=== PATIENT | male | born 1935 | race Caucasian/White ===

== ENCOUNTER 2018-07-05 12:47 | Inpatient (IN) | payer OTHER ==
[~2018-07-05] VITALS: Ht 172.7 cm; Wt 84.2 kg
--- NOTE | ~2018-07-05 | CATHLAB ---
[facility] [address] [place] [address] INVASIVE PROCEDURE REPORT Name: TI PFEIFFER Room #: 206-P ADM IN M..#: [id number] Admission: 07/05/18 Attend Phys: Terrance Cui MD Discharge: Date of : 34 Date of Service: 07/08/18 165 Report #: [id number] THIS REPORT FOR: //name// APPROVED REPORT Study performed: 07/08/2018 09:59:55 Patient Details Patient Status: In-Patient Room #: 206 The patient is a 82 year-old male Event Personnel Reynold Manzo Anesthesiology Faculty, Grisel Montoya Partnoy, Nancy RTR, STERILE PROCESS COORDINATOR Monitor, Bayron William RN Procedures Performed Coronaries Angiography and Bypass Grafts 743493 CORCABG 27456 Initial Mod Sed Same Phys/QHP Gr5y 063328 Art Access - R femoral artery* Hemostasis with Manual pressure 60594 Mod Sed Same Phys/QHP Ea 136148 Indication Dyspnea, Unstable angina , Positive stress test Risk Factors Peripheral Vascular Disease, Hypercholesterolemia, Coronary Artery DiseaseHypertensionRenal Failure, History of noncompliance with medical therapy. Previous Procedures/Diagnoses Previous CABG Procedure Narrative The Right Groin^ was infiltrated with 1% Lidocaine subcutaneous anesthesia. A PINNACLE 5FR Sheath #[id number] sheath was inserted into the RFA^. Coronary angiography was performed using coronary diagnostic catheters. The right coronary system was accessed and visualized with a JR4 catheter. The left coronary system was accessed and visualized with a JL5 catheter. Hemostasis was obtained with manual pressure following sheath removal without any complications. The patient tolerated the procedure well and there were no complications associated with the procedure. There was no hematoma. Intraoperative Conscious Sedation [facility] [address] [place] [address] INVASIVE PROCEDURE REPORT Name: TI PFEIFFER Room #: 206-P [facility] IN ..#: [id number] Admission: 07/05/18 Attend Phys: Terrance Cui MD Discharge: Date of : 34 Date of Service: 07/08/18 1651 Report #: [id number] Sedation start time: 11:10 Case end Time: 12:06 Fentanyl 100 mcg Versed 3 mg Fluoro Time: 9.50 minutes Dose: DAP 5904.40 cGycm2 664 mGy Contrast Type and Amount: Visipaque 60 ml Coronary Angiography The patient's coronary anatomy is right dominant. Diagnostic Cath LAD Occluded at the ostium. There is a patent TERRELL graft with an end-to-side anastomosis to the mid LAD. After the anastomosis, there is moderate diffuse disease in the LAD, recommend medical therapy. The distal LAD supplies collateral blood flow to the right PDA. Diagonal 1 Filled via retrograde blood flow from the TERRELL graft to the LAD. Circumflex The branches are occluded at the ostium. OM1 There is a large sequential SVG with a peqq-or-ufog anastomosis to OM1, atnw-go-upij anastomosis to OM 2 and end to side anastomosis to the right posterior lateral branch #2. After the anastomosis, there is retrograde filling to RPL #1, distal RCA and part of the PDA. Within the mid segment of the vein graft, there is a severe, ulcerative stenosis, at least 95% stenotic. Right Coronary Occluded at the proximal segment. There is an SVG to the distal RCA that is occluded at the proximal segment of the vein graft. Left Ventriculography Left Ventriculography was not performed. Ejection Fraction was 55-60% based off patient's Nuclear Cardiac Stress Test. Hemodynamics The aortic pressure is 147/76 mmHg with a mean of 107 mmHg. Conclusion 1. Patent TERRELL graft to mid LAD, there is moderate diffuse disease in the [place] LAD. Recommend medical therapy. 2. Severe, ulcerated stenosis within the mid segment of the sequential SVG to OM1, OM 2 and RPL 2. There is retrograde filling of the distal RCA and part of the PDA. [facility] [address] [place] [address] INVASIVE PROCEDURE REPORT Name: TI PFEIFFER Room #: 206-P [facility] IN M.R.#: [id number] Admission: 07/05/18 Attend Phys: Terrance Cui MD Discharge: Date of : 34 Date of Service: 07/08/18 1651 Report #: [id number] 3. The patient developed severe back pain lying on the cardiac cath table, unable to proceed with an angioplasty procedure. The right femoral artery sheath was removed as per patient's request. 4. Recommend staged angioplasty of the sequential SVG via radial access approach. 5. Gentle hydration and renal follow-up. <ELECTRONICALLY SIGNED> By: Reynold Manzo MD 07/08/181650 50 50 Reynold Manzo MD /INF
--- NOTE | ~2018-07-05 | HC ---
[facility] [place] [place] [address] CONSULTATION Name: TI PFEIFFER Room #: 206-P [facility] IN M.R.#: [id number] Admission: 07/05/18 Attend Phys: Terrance Cui MD Discharge: Date of : 34 Report #: [id number] THIS REPORT FOR: //name// CC: FAM physician/PCP Terrance Cui DATE OF SERVICE: 07/06/2018 Nephrology Consultation ATTENDING PHYSICIAN: Terrance Cui MD REASON FOR CONSULTATION: Chronic kidney disease. HISTORY OF PRESENT ILLNESS: The patient was seen in our office by Dr. No, longstanding difficult poorly controlled hypertension, history of coronary artery disease, previous coronary bypass, chronic kidney disease with a baseline creatinine of 3.7 in our office, presents with worsening chest pain and a creatinine of 4.0 today and difficult hypertension. PAST MEDICAL HISTORY: He has had the previous coronary bypass some years ago here at this hospital, maybe 8-10 years ago and hypertension, some arthritis. HOME MEDICATIONS: Include lisinopril 20 mg daily, metoprolol 50 mg daily. FAMILY HISTORY: Negative for renal disease. SOCIAL HISTORY: Heavy smoker, smokes up to a pack a day for a long number of years. REVIEW OF SYSTEMS: GENERAL: He has been feeling okay except for the exertional chest pain. EYES: His vision is alright. ENT: He cannot hear more much of anything on either side and was again to understand. Mucous membranes are moist. Teeth are somewhat discolored. NECK: Supple. CHEST: Clear to auscultation. HEART: Regular. ABDOMEN: Soft and nontender. EXTREMITIES: Show no edema. He has got an articulated erythematous pattern around his knees and his peripheral pulses are diminished, maybe very trace peripheral edema. NEUROLOGIC: Grossly intact except for his hearing. LABORATORY DATA: Urinalysis not done. Sodium 143, potassium 4.1, chloride 113, bicarbonate 20, creatinine 4, phosphorus 4, calcium 8.6. [address] [address] CONSULTATION Name: TI PFEIFFER Room #: [address] [place] [address] IN ..#: [id number] Admission: 07/05/18 Attend Phys: Terrance Cui MD Discharge: Date of : 34 Report #: [id number] IMPRESSION: 1. Chronic kidney disease. He has known chronic kidney disease, fairly advanced with a low estimated glomerular filtration rate, stage 4-5 disease, may need a heart catheterization, certainly at risk there for further deterioration, possibly even dialysis. 2. Chest pain. He has atypical chest pain, could certainly be angina. He has had previous coronary bypass. He is not the best historian, but that does seem to be exertional, likely will need a heart catheterization. 3. Severe hypertension. I will increase up his meds a bit. Unfortunately, his pulse is on the slow side and we really cannot increase of his carvedilol any further. His hydralazine needs to go up higher. He is already on 60 mg a day of Imdur. He is off his lisinopril, which he had been on. We will need to add further medications here to try to get this blood pressure down better. 4. Status post coronary artery bypass. <ELECTRONICALLY SIGNED> By: Nehemias Carey MD 07/08/18 1109 1845 0451 Nehemias Carey MD /nt
--- NOTE | ~2018-07-05 | EKG ---
[address] [place] [address] ELECTROCARDIOGRAM REPORT Name: TI PFEIFFER Room #: 206-P ADM IN M.R.#: [id number] Admission: 07/05/18 Attend Phys: Terrance Cui MD Discharge: Date of : 34 Report #: [id number] THIS REPORT FOR: //name// [facility] Test Date: 2018-07-06 Test Time: 00:11:19 Pat Name: TI PFEIFFER Department: Room: 206 P Gender: M Logistics/Shipper: brian : 1935 Requested By: Reynold Manzo Order Number: [id number] MD: Joe Ferrera Measurements Intervals [place] Rate: 48 P: -17 [place]: 201 QRS: -28 QRSD: 97 T: 165 QT: 454 QTc: 406 Interpretive Statements Sinus bradycardia LVH with secondary repolarization abnormality Anterior infarct, old Compared to ECG 07/05/2018 13:07:39 No significant change was found Electronically Signed On 07-07-2018 8:44:32 CDT by Joe Ferrera [email or web address] <ELECTRONICALLY SIGNED> By: Joe Ferrera MD, [facility] 07/07/18 0844 Joe Ferrera MD, FAC /EPI
--- NOTE | ~2018-07-05 | EKG ---
[place] [address] [employer] [place] [address] ELECTROCARDIOGRAM REPORT Name: TI PFEIFFER Room #: 206-P ADM IN M.R.#: [id number] Admission: 07/05/18 Attend Phys: Terrance Cui MD Discharge: Date of : 34 Report #: [id number] THIS REPORT FOR: //name// [facility] Test Date: 2018-07-08 Test Time: 17:57:00 Pat Name: TI PFEIFFER Department: Room: 206 P Gender: M Lobby Concierge: Iftikhar CABRALES : 1935 Requested By: Reynold Manzo Order Number: [id number] MD: Joe Ferrera Measurements Intervals [place] Rate: 80 P: 25 MD: 206 QRS: -36 QRSD: 90 T: 124 QT: 393 QTc: 454 Interpretive Statements Sinus rhythm LVH with secondary repolarization abnormality Probable inferior infarct, recent Probable anterior infarct, age indeterminate Compared to ECG 07/06/2018 00:11:19 inferior injury pattern is less pronounced Lateral ST and T wave abnormality has improved Electronically Signed On 07-09-2018 8:56:02 CDT by Joe Ferrera [email or web address] <ELECTRONICALLY SIGNED> By: Joe Ferrera MD, [facility] 07/09/18 0856 1757 1757 Joe Ferrera MD, [facility] /EPI
--- NOTE | ~2018-07-05 | EKG ---
[address] [address] ELECTROCARDIOGRAM REPORT Name: TI PFEIFFER Room #: 206-P ADM IN M.R.#: [id number] Admission: 07/05/18 Attend Phys: Terrance Cui MD Discharge: Date of : 34 Report #: [id number] THIS REPORT FOR: //name// [facility] Test Date: 2018-07-06 Test Time: 00:11:19 Pat Name: TI PFEIFFER Department: Room: 206 P Gender: M Cook Helper Pastry: brian : 1935 Requested By: Reynold Manzo Order Number: [id number] MD: Measurements Intervals [place] Rate: 48 P: -17 [place]: 201 QRS: -28 QRSD: 97 T: 165 QT: 454 QTc: 406 Interpretive Statements Sinus bradycardia LVH with secondary repolarization abnormality Inferior infarct, old Anterior infarct, old Compared to ECG 07/05/2018 13:07:39 Myocardial infarct finding now present Sinus rhythm no longer present Poor R-wave progression no longer present [email or web address] By: 0011 001 Epiphany EpiphanyMD /EPI
--- NOTE | ~2018-07-05 | 2DMMODE ---
[facility] [address] [facility] [place] [address] 2 D/M-MODE ECHOCARDIOGRAM Name: TI PFEIFFER Room #: 206-P ADM IN .R.#: [id number] Admission: 07/05/18 Attend Phys: Terrance Cui MD Discharge: Date of : 34 Date of Service: 07/06/18 1533 Report #: [id number] THIS REPORT FOR: //name// APPROVED REPORT Study performed: 07/06/2018 11:20:32 EXAM: Comprehensive 2D, Doppler, and color-flow Echocardiogram Patient Location: Echo lab Room #: 206 Status: routine BSA: 2.04 HR: 45 bpm BP: 153/71 mmHg Rhythm: Bradycardia Other Information Study Quality: Good Indications Angina. Hx: AK, CABG, HTN, HLP, tobacco abuse. 2D Dimensions RVDd: 39.37 mm IVSd: 13.11 (7-11mm) LVOT Diam: 20.51 (18-24mm) LVDd: 53.06 mm PWd: 12.62 (7-11mm) Ascending Ao: 34.79 (22-36mm) LVDs: 39.95 (25-40mm) Aortic Root: 35.52 mm Volumes Left Atrial Volume (Systole) Single Plane 4CH: 52.68 mL Single Plane 2CH: 54.74 mL LA ESV Index: 28.00 mL/m2 Aortic Valve AoV Peak Al.: 1.30 m/s AO Peak Gr.: 6.80 mmHg LVOT Max P.08 mmHg LVOT Max V: 0.88 m/s OLU Vmax: 2.22 cm2 Mitral Valve E/A Ratio: 0.9 MV Decel. Time: 203.71 ms MV E Max Al.: 0.85 m/s [facility] [place] [address] [place] [address] 2 D/M-MODE ECHOCARDIOGRAM Name: TI PFEIFFER Room #: 206-[facility] IN .R.#: [id number] Admission: 07/05/18 Attend Phys: Terrance Cui MD Discharge: Date of : 34 Date of Service: 07/06/18 1533 Report #: [id number] MV A Al.: 0.97 m/s MV PHT: 59.08 ms IVRT: 64.59 ms Pulmonary Valve PV Peak Al.: 0.89 m/s PV Peak Gr.: 3.15 mmHg Pulmonary Vein P Vein S: 0.73 m/s P Vein A: 0.35 m/s P Vein D: 0.61 m/s P Vein A Dur.: 175.3 msec P Vein S/D Ratio: 1.20 Tricuspid Valve TR Peak Al.: 2.35 m/s RAP Estimate: 5.00 mmHg TR Peak Gr.: 22.13 mmHg PA Pressure: 27.00 mmHg Left Ventricle The left ventricle is normal size. Mild concentric left ventricular hypertrophy. Left ventricular systolic function is normal. LVEF is 55-60%. Mild diastolic dysfunction is present (impaired relaxation pattern). Right Ventricle The right ventricle is normal size. The right ventricular systolic function is normal. Atria The left atrium size is normal. The right atrium size is normal. Aortic Valve Aortic valve leaflets are mildly thickened. No aortic regurgitation is present. There is no aortic valvular stenosis. Mitral Valve Mitral valve leaflets are mildly thickened. Mild mitral regurgitation. Tricuspid Valve The tricuspid valve is normal in structure. Trace tricuspid regurgitation. Estimated PAP is 25-30mmHg. Pulmonic Valve Pulmonic valve is not well visualized. Trace pulmonic regurgitation. [facility] [address] [place] [address] 2 D/M-MODE ECHOCARDIOGRAM Name: TI PFEIFFER Room #: 206-P [facility] IN .R.#: [id number] Admission: 07/05/18 Attend Phys: Terrance Cui MD Discharge: Date of : 34 Date of Service: 07/06/18 1533 Report #: [id number] Great Vessels The aortic root is normal in size. The ascending aorta is normal in size. IVC is normal in size and collapses >50% with inspiration. Pericardium There is no pericardial effusion. <Conclusion> The left ventricle is normal size. Mild concentric left ventricular hypertrophy. Left ventricular systolic function is normal. Mild diastolic dysfunction is present (impaired relaxation pattern). The right ventricle is normal size. The left atrium size is normal. Aortic valve leaflets are mildly thickened. Mild mitral regurgitation. Trace tricuspid regurgitation. Estimated PAP is 25-30mmHg. <ELECTRONICALLY SIGNED> By: Reynold Manzo MD 07/06/18 1533 1533 153 Reynold Manzo MD /INF
--- NOTE | ~2018-07-05 | HC ---
[facility] [place] [address] CONSULTATION Name: TI PFEIFFER Room #: 206-P ADM IN M.R.#: [id number] Admission: 07/05/18 Attend Phys: Terrance Cui MD Discharge: Date of : 34 Report #: [id number] THIS REPORT FOR: //name// CC: [place] physician/PCP Terrance Cui DATE OF SERVICE: 07/06/2018 INDICATION: Chest pain. HISTORY OF PRESENT ILLNESS: This is an 82-year-old gentleman with a past medical history significant for CAD status post CABG, hypertension and chronic renal failure, presenting with chest pains. He is a poor historian, appears to get his medical care at [facility]. He reports not seeing a physician in many years. He reports the pain in the right sternal chest area, comes and goes. It seems to occur in the mornings and when he walks. However, he does not have recurrent pain when he walks a longer distance in the afternoons. There is no history of shortness of breath, palpitations, PND or orthopnea. His creatinine is 4.1 and 3 sets of troponin levels are negative. ECG reveals sinus rhythm with LVH and repolarization abnormality. ALLERGIES: None. PAST MEDICAL HISTORY: History of hypertension, CAD, CABG more than 10 years ago apparently at [facility] according to the records, hypercholesterolemia, chronic renal failure. MEDICATIONS: Reportedly include lisinopril 20 mg daily, metoprolol 50 mg daily. SOCIAL HISTORY: Positive tobacco use, at least half a pack per day. FAMILY HISTORY: Negative for premature CAD. REVIEW OF SYSTEMS: A full 10-point review of systems is performed. Only the pertinent positives and negatives are described in the HPI. PHYSICAL EXAMINATION: VITAL SIGNS: Blood pressure is 180/90, heart rate is 55 beats per minute. GENERAL APPEARANCE: A well-developed, well-nourished male in no acute distress. HEENT: Normocephalic, atraumatic. Oral mucosa moist. NECK: Supple. LUNGS: Clear to auscultation. CARDIAC: Regular rate and rhythm, S1, S2 positive. ABDOMEN: Soft, nontender. EXTREMITIES: No cyanosis, 1+ bilateral lower extremity edema. [facility] [address] [place] [address] CONSULTATION Name: TI PFEIFFER Room #: 206-P ADM IN M.R.#: [id number] Admission: 07/05/18 Attend Phys: Terrance Cui MD Discharge: Date of : 34 Report #: [id number] ECG reveals sinus bradycardia, LVH with repolarization abnormality, anteroseptal FL. LABORATORY VALUES: Creatinine is 4.0. Hemoglobin is 10.0. Troponin is negative x 3. ASSESSMENT AND PLAN: 1. Chest pain syndrome, his symptoms are unlikely to be from ischemia as serial troponin levels are negative. His pain is not always reproducible. Other considerations include musculoskeletal versus GI. However, he has a significant cardiac history and will need to proceed with noninvasive stress testing. The plan is to discontinue heparin and IV nitroglycerin. 2. Coronary artery disease/coronary artery bypass graft, he will need aspirin therapy. We will also add long-acting nitrates for now. He will need an echo to assess for valvular heart disease. 3. Hypertension/uncontrolled, probably may in part be due to noncompliance. We will have to adjust his medications. The plan is to change the beta bert to carvedilol and add hydralazine. 4. Hypercholesterolemia. We will start a statin medication. 5. Tobacco use, complete smoking cessation is advised. <ELECTRONICALLY SIGNED> By: Reynold Manzo MD 07/07/18 0746 0808 02 Reynold Manzo MD /nt
--- NOTE | ~2018-07-05 | EKG ---
[place] [address] [facility] [place] [address] ELECTROCARDIOGRAM REPORT Name: TI PFEIFFER Room #: 206-P ADM IN M.R.#: [id number] Admission: 07/05/18 Attend Phys: Terrance Cui MD Discharge: Date of : 34 Report #: [id number] THIS REPORT FOR: //name// [facility] Test Date: 2018-07-09 Test Time: 07:56:25 Pat Name: TI PFEIFFER Department: Room: 206 P Gender: M Insurance Premium Auditor: ANTONY : 1935 Requested By: Reynold Manzo Order Number: [id number] MD: Joe Ferrera Measurements Intervals [place] Rate: 98 P: 56 FL: 212 QRS: -41 QRSD: 89 T: 141 QT: 345 QTc: 441 Interpretive Statements Sinus rhythm Borderline prolonged FL interval LVH with secondary repolarization abnormality Probable inferior infarct, recent Probable anterior infarct, age indeterminate Compared to ECG 07/06/2018 00:11:19 No significant change was found Electronically Signed On 07-09-2018 9:03:00 CDT by Joe Ferrera [email or web address] <ELECTRONICALLY SIGNED> By: Joe Ferrera MD, [facility] 07/09/18 0903 0756 0756 Joe Ferrera MD, [facility] /EPI
--- NOTE | ~2018-07-05 | EKG ---
[place] [address] [address] [facility] [place] [address] ELECTROCARDIOGRAM REPORT Name: TI PFEIFFER Room #: 206-P ADM IN M.R.#: [id number] Admission: 07/05/18 Attend Phys: Terrance Cui MD Discharge: Date of : 34 Report #: [id number] THIS REPORT FOR: //name// [facility] Test Date: 2018-07-08 Test Time: 13:49:42 Pat Name: TI PFEIFFER Department: Room: 206 P Gender: M Packaging Technician: Reginaldo HARRISON : 1935 Requested By: Dwayne Barlow Order Number: [id number] MD: Joe Ferrera Measurements Intervals [place] Rate: 86 P: 30 [place]: 200 QRS: -20 QRSD: 103 T: 149 QT: 360 QTc: 431 Interpretive Statements Sinus rhythm Inferior infarct, possibly acute (RCA) Anterior Q waves, possibly due to LVH Compared to ECG 07/06/2018 00:11:19 Sinus bradycardia no longer present inferior injury pattern is now present Lateral ST and T wave abnormality is more pronounced Electronically Signed On 07-09-2018 8:53:11 CDT by Joe Ferrera [email or web address] <ELECTRONICALLY SIGNED> By: Joe Ferrera MD, [facility] 07/09/18 0853 1349 1349 Joe Ferrera MD, [facility] /EPI
--- NOTE | ~2018-07-05 | EKG ---
[place] [address] [address] [facility] [place] [address] ELECTROCARDIOGRAM REPORT Name: TI PFEIFFER Room #: 206-P ADM IN M.R.#: [id number] Admission: 07/05/18 Attend Phys: Terrance Cui MD Discharge: Date of : 34 Report #: [id number] THIS REPORT FOR: //name// [facility] Test Date: 2018-07-05 Test Time: 13:07:39 Pat Name: TI PFEIFFER Department: Room: 206 Gender: M Cast Associate: EMELY : 1935 Requested By: Bradly Lainez Order Number: [id number] MD: Joe Ferrera Measurements Intervals [place] Rate: 51 P: -35 [place]: 189 QRS: -30 QRSD: 98 T: 156 QT: 438 QTc: 404 Interpretive Statements Sinus rhythm LVH with secondary repolarization abnormality Poor R wave progression Compared to ECG 08/09/2009 07:39:11 No significant change was found Electronically Signed On 07-05-2018 17:11:43 CDT by Joe Ferrera [email or web address] <ELECTRONICALLY SIGNED> By: Joe Ferrera MD, [facility] 07/05/18 1711 06 06 Joe Ferrera MD, [facility] /EPI
--- NOTE | ~2018-07-05 | CATHLAB ---
[facility] [address] [place] [address] INVASIVE PROCEDURE REPORT Name: TI PFEIFFER Room #: 206-P ADM IN M.R.#: [id number] Admission: 07/05/18 Attend Phys: Terrance Cui MD Discharge: Date of : 33 Date of Service: 07/09/18 1046 Report #: [id number] THIS REPORT FOR: //name// APPROVED REPORT Study performed: 07/08/2018 14:04:54 Patient Details Patient Status: In-Patient Room #: The patient is a 82 year-old male Event Personnel Reynold Manzo Band Cutter, Bayron William RN, Grisel Montoya Partnoy, Nancy RTR, ASSISTANT CENTER DIRECTOR Monitor Procedures Performed Art Access - R radial artery HERI Place w/wo Plasty Single HAIR 681943 15928 Initial Mod Sed Same Phys/QHP Gr5y 401581 30850 Mod Sed Same Phys/QHP Ea 642085 Indication Unstable angina , Chest pain, The patient had a diagnostic cardiac catheterization performed via the right femoral artery access several hours before. However, he developed significant back pain lying supine on the table and the plan was to perform a staged angioplasty procedure involving the SVG sequential sequential SVG to OM 1, OM 2 and RPL 2. After the anastomosis to RPL 2, there is retrograde blood flow filling RPL 1, distal RCA and the PDA. However, there was a severe stenosis in the proximal segment of RPL 2, which was compromising this retrograde blood flow. The right femoral artery sheath was removed in the kiln labourer and the patient was transferred back to the CCU. He developed chest pains with significant ST segment abnormalities., The patient was brought back to the kiln labourer for unstable angina/ECG changes, to be performed via the right radial artery access. Risk Factors Peripheral Vascular Disease, Hypercholesterolemia, Coronary Artery DiseaseHypertensionRenal Failure Previous Procedures/Diagnoses Previous CABG Procedure Narrative The patient was brought urgently to the Cardiac Catheterization [facility] [address] [place] [address] INVASIVE PROCEDURE REPORT Name: TI PFEIFFER Room #: 206-P [facility] IN M.R.#: [id number] Admission: 07/05/18 Attend Phys: Terrance Cui MD Discharge: Date of : 33 Date of Service: 07/09/18 1046 Report #: [id number] Laboratory and was prepped and draped in a sterile manner. The Right Wrist^ was infiltrated with 1% Lidocaine subcutaneous anesthesia. A TRANSRADIAL SLENDER 6F GLIDESHEATH KIT #[id number] sheath was inserted into the Right Radial Artery^. Coronary angiography was performed using coronary diagnostic catheters. Closure device was deployed with a Fr VASC BAND L 27CM #[id number]. The patient tolerated the procedure well and there were no complications associated with the procedure. There was no hematoma. Intraoperative Conscious Sedation Sedation start time: 14:48 Case end Time: 15:47 Fentanyl 50 mcg Fluoro Time: 29.08 minutes Dose: DAP 12839.20 cGycm2 2818 mGy Contrast Type and Amount: Visipaque 150 ml Hemodynamics The aortic pressure is 151/84 mmHg with a mean of 111 mmHg. PCI Technique Lesion Anticoagulation was achieved with Angiomax. Patient was preloaded with Plavix. Percutaneous coronary intervention was performed on the mid segment of the sequential SVG to OM1, OM 2 and RPL 2.. The lesion stenosis prior to intervention was 95% with ROXI 3 flow. A VISTA 6FR JR 4 #[id number] Guide Catheter was used to engage the ostium. A Luge Wire .014 x 182CM #[id number] Interventional Guidewire was used to cross the lesion. BALLOON DILATION A Balloon catheter Euphora RX 2.5 x 15 #[id number] was inserted and inflated up to 12.00atm for 15seconds. Additional Inflation: 12.00atm for 10seconds. STENT DEPLOYMENT A drug-eluting stent RESOLUTE PEPE RX 3.5 X 34 #[id number] was inserted and inflated up to 18.00atm for 15seconds. Final angiography reveals 5 % stenosis with ROXI 3 flow. PCI Technique Lesion 2 Percutaneous Coronary Intervention was performed on the proximal segment of the second right posterior lateral branch(RPL 2).. The lesion stenosis prior to intervention was 95% with ROXI 2 flow. A VISTA 6FR AR 1 #[id number] Guide Catheter was used to engage the ostium. [facility] [address] [place] [address] INVASIVE PROCEDURE REPORT Name: TI PFEIFFER Room #: 206-P [facility] IN ..#: [id number] Admission: 07/05/18 Attend Phys: Terrance Cui MD Discharge: Date of : 33 Date of Service: 07/09/18 1046 Report #: [id number] A Whisper Wire .014 x 190 #[id number] Interventional Guidewire was used to cross the lesion. Balloon Dilation A Balloon catheter Euphora RX 2.0 x12 #[id number] was inserted and inflated up to 10.00atm for 18seconds. Additional Inflation: 10.00atm for 10seconds. Additional Inflation: 10.00atm for 15seconds. Stent Deployment A drug-eluting stent RESOLUTE PEPE RX 2.25 X 12 #[id number] was inserted and inflated up to 18.00atm for 16seconds. Final angiography reveals 0 % stenosis with ROXI 3 flow. Comments During the initial injection, there was a severe stenosis in the proximal segment of a RPL 2, which was compromising the retrograde blood flow to the distal RCA, RPL 1 and PDA. After the initial stent placement in the sequential SVG, there was a total occlusion at the lesion site in the segment of RPL 2. After stent placement to this area, there was scientology of retrograde blood flow to the distal RCA, RPL 1 and PDA. Conclusion 1. Successful placement of a drug-eluting stent into the mid segment of the sequential SVG to OM1, OM 2 and RPL 2. 2. Successful placement of a drug-eluting stent into the proximal segment of RPL 2, restoring retrograde blood flow to the distal RCA, RPL 1 and PDA. 3. Recommend dual antiplatelet therapy and aggressive risk factor management. <ELECTRONICALLY SIGNED> By: Reynold Manzo MD 07/09/18 1046 45 45 Reynold Manzo MD /INF
--- NOTE | ~2018-07-05 | EKG ---
[place] [address] [facility] [address] [place] [address] ELECTROCARDIOGRAM REPORT Name: TI PFEIFFER Room #: 206-P ADM IN M.R.#: [id number] Admission: 07/05/18 Attend Phys: Terrance Cui MD Discharge: Date of : 33 Report #: [id number] THIS REPORT FOR: //name// [facility] ED Test Date: 2018-07-05 Test Time: 12:55:20 Pat Name: TI PFEIFFER Department: Room: 206 Gender: M Tune Up Mechanic: EMELY : 1935 Requested By: Bradly Lainez Order Number: [id number] MD: Joe Ferrera Measurements Intervals [place] Rate: 51 P: -34 WA: 188 QRS: -29 QRSD: 101 T: 154 QT: 433 QTc: 399 Interpretive Statements Sinus rhythm LVH with secondary repolarization abnormality Poor R wave progression Compared to ECG 08/09/2009 07:39:11 Left ventricular hypertrophy now present Nonspecific change in the ST and T-wave segments Electronically Signed On 07-05-2018 17:10:54 CDT by Joe Ferrera [email or web address] <ELECTRONICALLY SIGNED> By: Joe Ferrera MD, FACC 07/05/18 1710 1255 1255 Joe Ferrera MD, [facility] /EPI
--- NOTE | ~2018-07-05 | EKG ---
[place] [address] [facility] [place] [place] [address] ELECTROCARDIOGRAM REPORT Name: TI PFEIFFER Room #: 206-P ADM IN M.R.#: [id number] Admission: 07/05/18 Attend Phys: Terrance Cui MD Discharge: Date of : 33 Report #: [id number] THIS REPORT FOR: //name// [facility] Test Date: 2018-07-06 Test Time: 00:09:33 Pat Name: TI PFEIFFER Department: Room: 206 P Gender: M Supply Chain Engineer: brian : 1935 Requested By: Reynold Manzo Order Number: [id number] MD: Joe Ferrera Measurements Intervals [place] Rate: 50 P: 12 MS: 197 QRS: -28 QRSD: 98 T: 168 QT: 463 QTc: 423 Interpretive Statements Sinus rhythm 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
[2018-07-05 12:48] VITALS: BP 228/81
[2018-07-05 13:23] LABS: ABSOLUTE NEUTROPHILS 6.2 thou/uL (1.4-8.2); BASOPHILS 0.6 % (0.0-2.0); EOSINOPHILS 3.7 % (0.0-3.0); HEMATOCRIT 33.8 % (42.0-52.0); HEMOGLOBIN 11.3 gm/dL (14.0-18.0); LYMPHOCYTES 19.3 % (24.0-44.0); MCH 32.2 pg (26.0-34.0); MCHC 33.5 g/dL (28.0-37.0); MCV 96.4 fL (80.0-100.0); MONOCYTES 8.6 % (1.0-8.0); PLATELET COUNT 152 thou/uL (150-400); POLYS 67.8 % (36.0-66.0); RBC 3.51 mil/uL (4.50-6.00); RDW 13.6 % (10.5-14.5); WBC 9.2 thou/uL (4.0-11.0)
[2018-07-05] MEDS ORDERED: LISINOPRIL20 MG PO (13:25)
[2018-07-05] MEDS ORDERED: METOPROLOL SUCC50 MG PO (13:26)
[2018-07-05 13:33] LABS: ANION GAP 9 mmol/L (7-16); BUN 50 mg/dL (7-18); CALCIUM 8.9 mg/dL (8.5-10.1); CHLORIDE 111 mmol/L (98-107); CO2 21 mmol/L (21-32); CREATININE 4.1 mg/dL (0.7-1.3); GLUCOSE 94 mg/dL (74-106); POTASSIUM 4.2 mmol/L (3.5-5.1); SODIUM 141 mmol/L (136-145)
[2018-07-05 13:41] LABS: TROPONIN-I <0.06 ng/mL (<0.06)
[2018-07-05 15:10] VITALS: BP 182/65
[2018-07-05 16:30] VITALS: BP 200/78
[2018-07-05 19:24] VITALS: BP 185/99
[2018-07-05 20:06] VITALS: BP 184/70
[2018-07-06] VITALS (9 sets, daily range): BP systolic 104–200; BP diastolic 48–89
[2018-07-06 00:35] LABS: HEMATOCRIT 30.6 % (42.0-52.0); HEMOGLOBIN 10.4 gm/dL (14.0-18.0); MCH 32.8 pg (26.0-34.0); MCHC 34.1 g/dL (28.0-37.0); MCV 96.2 fL (80.0-100.0); RBC 3.18 mil/uL (4.50-6.00); RDW 14.2 % (10.5-14.5); WBC 6.6 thou/uL (4.0-11.0)
[2018-07-06 00:51] LABS: CHOLESTEROL 138 mg/dL (<200); HDL CHOLESTEROL 28 mg/dL (>40); LDL CHOLESTEROL 101 mg/dL (<100); TC:HDL 4.9 Ratio (Not establshd); TRIGLYCERIDE 49 mg/dL (<150); TROPONIN-I <0.06 ng/mL (<0.06); VLDL 10 mg/dL (<40)
[2018-07-06 00:53] LABS: APTT 27.5 Seconds (24.5-32.8); INR 1.1; PROTIME 10.9 Seconds (9.3-11.4)
[2018-07-06 00:56] LABS: SERUM ASSESSMENT Clear
[2018-07-06 07:06] LABS: HEMATOCRIT 29.3 % (42.0-52.0); MCH 32.8 pg (26.0-34.0); MCHC 34.2 g/dL (28.0-37.0); RBC 3.05 mil/uL (4.50-6.00); RDW 13.9 % (10.5-14.5); WBC 7.3 thou/uL (4.0-11.0)
[2018-07-06 07:20] LABS: ALBUMIN 2.8 g/dL (3.4-5.0); CALCIUM 8.6 mg/dL (8.5-10.1); POTASSIUM 4.1 mmol/L (3.5-5.1)
[2018-07-07] VITALS (7 sets, daily range): BP systolic 149–220; BP diastolic 57–90
[2018-07-07 03:50] LABS: ALBUMIN 3.3 g/dL (3.4-5.0); CALCIUM 8.7 mg/dL (8.5-10.1); CREATININE 4.2 mg/dL (0.7-1.3); PHOSPHORUS 4.2 mg/dL (2.5-4.9)
[2018-07-08 00:27] VITALS: BP 154/82
[2018-07-08 03:53] LABS: HEMATOCRIT 32.4 % (42.0-52.0); HEMOGLOBIN 10.9 gm/dL (14.0-18.0); MCH 32.1 pg (26.0-34.0); MCHC 33.7 g/dL (28.0-37.0); MCV 95.3 fL (80.0-100.0); RBC 3.4 mil/uL (4.50-6.00); RDW 13.5 % (10.5-14.5); WBC 7.3 thou/uL (4.0-11.0)
[2018-07-08 04:05] LABS: ALBUMIN 3.2 g/dL (3.4-5.0); CALCIUM 8.6 mg/dL (8.5-10.1); CREATININE 4.6 mg/dL (0.7-1.3); PHOSPHORUS 4.7 mg/dL (2.5-4.9); POTASSIUM 3.7 mmol/L (3.5-5.1)
[2018-07-08 04:42] VITALS: BP 140/85
[2018-07-08 07:33] VITALS: BP 147/75
[2018-07-08 19:43] VITALS: BP 124/61
[2018-07-09 00:04] VITALS: BP 118/55
[2018-07-09 04:28] VITALS: BP 112/46
[2018-07-09 04:33] LABS: HEMATOCRIT 29.4 % (42.0-52.0); HEMOGLOBIN 10.2 gm/dL (14.0-18.0); MCH 33.3 pg (26.0-34.0); MCHC 34.8 g/dL (28.0-37.0); MCV 95.6 fL (80.0-100.0); RBC 3.08 mil/uL (4.50-6.00); WBC 9.5 thou/uL (4.0-11.0)
[2018-07-09 04:55] LABS: ALBUMIN 2.8 g/dL (3.4-5.0); CALCIUM 8.5 mg/dL (8.5-10.1); CREATININE 5.2 mg/dL (0.7-1.3); PHOSPHORUS 4.8 mg/dL (2.5-4.9); POTASSIUM 3.8 mmol/L (3.5-5.1); TOTAL BILIRUBIN 0.7 mg/dL (<0.1-1.0); TOTAL PROTEIN 5.8 g/dL (6.4-8.2)
[2018-07-09 04:58] LABS: TROPONIN-I 55.34 ng/mL (<0.06)
[2018-07-09 08:08] VITALS: BP 110/55
[2018-07-09 16:07] VITALS: BP 104/38
[2018-07-09 19:25] VITALS: BP 128/67
[2018-07-10 04:17] VITALS: BP 109/56
[2018-07-10 05:14] LABS: HEMATOCRIT 27.3 % (42.0-52.0); HEMOGLOBIN 9.4 gm/dL (14.0-18.0); MCHC 34.4 g/dL (28.0-37.0); MCV 95.8 fL (80.0-100.0); RBC 2.85 mil/uL (4.50-6.00); RDW 13.8 % (10.5-14.5); WBC 9.2 thou/uL (4.0-11.0)
[2018-07-10 05:28] LABS: ALBUMIN 2.6 g/dL (3.4-5.0); CALCIUM 8.3 mg/dL (8.5-10.1); CREATININE 6.4 mg/dL (0.7-1.3); PHOSPHORUS 4.8 mg/dL (2.5-4.9); POTASSIUM 3.6 mmol/L (3.5-5.1)
[2018-07-10 07:40] VITALS: BP 133/65
[2018-07-10 11:23] VITALS: BP 124/51
[2018-07-10 15:59] VITALS: BP 119/48
[2018-07-10 19:45] VITALS: BP 131/66
[2018-07-11 03:54] LABS: HEMATOCRIT 27.5 % (42.0-52.0); HEMOGLOBIN 9.3 gm/dL (14.0-18.0); MCH 32.4 pg (26.0-34.0); MCHC 33.7 g/dL (28.0-37.0); MCV 96.3 fL (80.0-100.0); RBC 2.86 mil/uL (4.50-6.00); RDW 13.9 % (10.5-14.5); WBC 8.5 thou/uL (4.0-11.0)
[2018-07-11 04:00] VITALS: BP 116/45
[2018-07-11 08:00] LABS: CREATININE 7.2 mg/dL (0.7-1.3); POTASSIUM 3.7 mmol/L (3.5-5.1)
[2018-07-11 10:56] VITALS: BP 114/50
[2018-07-11 19:16] VITALS: BP 114/41
[2018-07-12 03:56] VITALS: BP 124/48
[2018-07-12 04:38] LABS: ALBUMIN 2.4 g/dL (3.4-5.0); CALCIUM 8.1 mg/dL (8.5-10.1); POTASSIUM 3.5 mmol/L (3.5-5.1)
[2018-07-12 04:42] LABS: CREATININE 4.8 mg/dL (0.7-1.3)
[2018-07-12 07:06] VITALS: BP 123/51
[2018-07-12 11:23] VITALS: BP 123/58
[2018-07-12 15:08] LABS: HEPATITIS B SURFACE AG Negative (Negative)
[2018-07-12 15:42] VITALS: BP 115/35
[2018-07-12 20:11] VITALS: BP 129/66
[2018-07-13 04:04] LABS: HEMATOCRIT 26.8 % (42.0-52.0); HEMOGLOBIN 9.3 gm/dL (14.0-18.0); MCH 32.9 pg (26.0-34.0); MCHC 34.8 g/dL (28.0-37.0); MCV 94.7 fL (80.0-100.0); RBC 2.83 mil/uL (4.50-6.00); RDW 13.6 % (10.5-14.5); WBC 5.8 thou/uL (4.0-11.0)
[2018-07-13 04:08] LABS: ALBUMIN 2.4 g/dL (3.4-5.0); CALCIUM 8.1 mg/dL (8.5-10.1); PHOSPHORUS 3.8 mg/dL (2.5-4.9); POTASSIUM 3.5 mmol/L (3.5-5.1)
[2018-07-13 04:18] LABS: CREATININE 3.8 mg/dL (0.7-1.3)
[2018-07-13 04:45] VITALS: BP 140/62
[2018-07-13 07:40] VITALS: BP 142/66
[2018-07-13 10:51] VITALS: BP 127/51
[2018-07-13 11:29] VITALS: BP 162/99
[2018-07-13 14:55] VITALS: BP 139/63
[2018-07-13 20:16] VITALS: BP 139/71
[2018-07-14 03:13] LABS: ALBUMIN 2.6 g/dL (3.4-5.0); CALCIUM 8.1 mg/dL (8.5-10.1); CREATININE 4.6 mg/dL (0.7-1.3); PHOSPHORUS 4.2 mg/dL (2.5-4.9)
[2018-07-14 05:59] VITALS: BP 142/73
[2018-07-14 07:35] VITALS: BP 145/80
[2018-07-14 19:40] VITALS: BP 115/49
[2018-07-15 03:43] LABS: ALBUMIN 2.6 g/dL (3.4-5.0); CALCIUM 8.3 mg/dL (8.5-10.1); PHOSPHORUS 3.7 mg/dL (2.5-4.9); POTASSIUM 3.6 mmol/L (3.5-5.1)
[2018-07-15 03:44] LABS: HEMATOCRIT 27.9 % (42.0-52.0); HEMOGLOBIN 9.7 gm/dL (14.0-18.0); MCHC 34.8 g/dL (28.0-37.0); MCV 94.8 fL (80.0-100.0); PLATELET COUNT 196 thou/uL (150-400); RBC 2.94 mil/uL (4.50-6.00); RDW 13.2 % (10.5-14.5); WBC 6.3 thou/uL (4.0-11.0)
[2018-07-15 03:45] LABS: CREATININE 3.3 mg/dL (0.7-1.3)
[2018-07-15 05:18] LABS: ABSOLUTE NEUTROPHILS 4.7 thou/uL (1.4-8.2); LARGE PLATELETS OCCASIONAL
[2018-07-15 05:22] VITALS: BP 142/76
[2018-07-15 07:50] VITALS: BP 147/83
[2018-07-15 11:30] VITALS: BP 120/58
[2018-07-15 15:45] VITALS: BP 137/57
[2018-07-15 19:08] VITALS: BP 124/54
[2018-07-16] VITALS (9 sets, daily range): BP systolic 106–154; BP diastolic 49–68
[2018-07-16 04:40] LABS: ALBUMIN 2.7 g/dL (3.4-5.0); CALCIUM 8.2 mg/dL (8.5-10.1); POTASSIUM 3.3 mmol/L (3.5-5.1)
[2018-07-16 04:41] LABS: CREATININE 4.3 mg/dL (0.7-1.3)
[2018-07-17 04:18] VITALS: BP 122/46
[2018-07-17 04:28] LABS: HEMATOCRIT 26.3 % (42.0-52.0); HEMOGLOBIN 9.1 gm/dL (14.0-18.0); MCH 32.7 pg (26.0-34.0); MCHC 34.5 g/dL (28.0-37.0); MCV 94.7 fL (80.0-100.0); RBC 2.78 mil/uL (4.50-6.00); RDW 13.3 % (10.5-14.5); WBC 7.2 thou/uL (4.0-11.0)
[2018-07-17 04:38] LABS: CALCIUM 7.8 mg/dL (8.5-10.1); CREATININE 3.4 mg/dL (0.7-1.3)
[2018-07-17 07:30] VITALS: BP 149/68
[2018-07-17 11:15] VITALS: BP 128/50
[2018-07-17 15:50] VITALS: BP 128/53
[2018-07-17 19:44] VITALS: BP 114/59
[2018-07-18 04:44] LABS: ALBUMIN 2.6 g/dL (3.4-5.0); CALCIUM 8.3 mg/dL (8.5-10.1); CREATININE 4.4 mg/dL (0.7-1.3); PHOSPHORUS 3.5 mg/dL (2.5-4.9); POTASSIUM 4.3 mmol/L (3.5-5.1)
[2018-07-18 04:47] LABS: % SATURATION 22 % (20-39); IRON 37 ug/dL (65-175); TIBC 169 ug/dL (250-450)
[2018-07-18 05:46] VITALS: BP 126/60
[2018-07-18 07:30] VITALS: BP 143/56
[2018-07-18 11:20] VITALS: BP 118/61
[2018-07-18 16:30] VITALS: BP 136/52
[2018-07-18 19:44] VITALS: BP 124/46
[2018-07-19 03:49] VITALS: BP 137/56
[2018-07-19 03:53] LABS: ALBUMIN 2.7 g/dL (3.4-5.0); CALCIUM 8.3 mg/dL (8.5-10.1); CREATININE 4.8 mg/dL (0.7-1.3); PHOSPHORUS 3.6 mg/dL (2.5-4.9); POTASSIUM 4.1 mmol/L (3.5-5.1)
[2018-07-19 08:10] VITALS: BP 140/79
[2018-07-19 12:10] VITALS: BP 138/56
[2018-07-19 16:35] VITALS: BP 92/50
[2018-07-19 19:36] VITALS: BP 131/49
[2018-07-20 03:22] VITALS: BP 124/51
[2018-07-20 03:39] LABS: HEMATOCRIT 28.3 % (42.0-52.0); HEMOGLOBIN 9.2 gm/dL (14.0-18.0); MCH 31.2 pg (26.0-34.0); MCHC 32.4 g/dL (28.0-37.0); MCV 96.3 fL (80.0-100.0); RBC 2.94 mil/uL (4.50-6.00); WBC 8.1 thou/uL (4.0-11.0)
[2018-07-20 03:50] LABS: CALCIUM 8.4 mg/dL (8.5-10.1); POTASSIUM 3.9 mmol/L (3.5-5.1)
[2018-07-20 03:51] LABS: CREATININE 3.8 mg/dL (0.7-1.3)
[2018-07-20 07:45] VITALS: BP 143/71
[2018-07-20 13:10] VITALS: BP 106/61
[2018-07-20 17:00] VITALS: BP 114/63
[2018-07-20 19:46] VITALS: BP 113/56
[2018-07-21 05:31] VITALS: BP 137/70
[2018-07-21 09:36] VITALS: BP 132/68
[2018-07-21 11:19] VITALS: BP 141/68
[2018-07-21] MEDS ORDERED: IRON325 PO (12:33)
[2018-07-21] MEDS ORDERED: COREG3.125 MG PO (12:34)
[2018-07-21] MEDS ORDERED: PLAVIX 75 MG TA75 M1 PO (12:34)
[2018-07-21] MEDS ORDERED: ASPIR 8181 MG PO (12:34)
[2018-07-21] MEDS ORDERED: PROCRIT20000 UNIT SUBQ (12:34)
[2018-07-21] MEDS ORDERED: HYDRALAZINE 5050 MG PO (12:34)
[2018-07-21] MEDS ORDERED: PROTONIX40 M1 PO (12:34)
[2018-07-21] MEDS ORDERED: LIPITOR40 MG PO (12:34)
[2018-07-21] MEDS ORDERED: MIRALAX17 GM PO (12:34)
[2018-07-21] MEDS ORDERED: LIDOPATCH1 EACH TRANSDERM (12:34)
[2018-07-21 14:37] VITALS: BP 142/74
== END 2018-07-21 15:28 | DRG 246 ==
LOC: ER 12:47 → 2N 14:31 → EROBS 14:31 → 2N 16:13 → ENTRNSPT 07-21 15:14 → EDTRNSPTSTS 07-21 15:16 → 2N 07-21 15:28
PROVIDERS: Emergency Medicine; Hospitalist; Internal Medicine; Internal Medicine Cardiovascular Disease; Internal Medicine Nephrology
PROC: B2111ZZ Fluoroscopy of Multiple Coronary Arteries using Low Osmolar Contrast (ICD-10-PCS; principal; 2018-07-08)
PROC: B2181ZZ Fluoroscopy of Left Internal Mammary Bypass Graft using Low Osmolar Contrast (ICD-10-PCS; principal; 2018-07-08)
PROC: B2131ZZ Fluoroscopy of Multiple Coronary Artery Bypass Grafts using Low Osmolar Contrast (ICD-10-PCS; principal; 2018-07-08)
PROC: 027135Z Dilation of Coronary Artery, Two Arteries with Two Drug-eluting Intraluminal Devices, Percutaneous Approach (ICD-10-PCS; principal; 2018-07-08)
PROC: 02HV33Z Insertion of Infusion Device into Superior Vena Cava, Percutaneous Approach (ICD-10-PCS; 2018-07-09)
PROC: B5181ZA Fluoroscopy of Superior Vena Cava using Low Osmolar Contrast, Guidance (ICD-10-PCS; 2018-07-09)
PROC: B548ZZA Ultrasonography of Superior Vena Cava, Guidance (ICD-10-PCS; 2018-07-09)
PROC: 5A1D70Z Performance of Urinary Filtration, Intermittent, Less than 6 Hours Per Day (ICD-10-PCS; 2018-07-11)
PROC: 5A1D70Z Performance of Urinary Filtration, Intermittent, Less than 6 Hours Per Day (ICD-10-PCS; 2018-07-12)
PROC: 5A1D70Z Performance of Urinary Filtration, Intermittent, Less than 6 Hours Per Day (ICD-10-PCS; 2018-07-14)
PROC: B244YZZ Ultrasonography of Right Heart using Other Contrast (ICD-10-PCS; 2018-07-16)
PROC: 0JH63XZ Insertion of Tunneled Vascular Access Device into Chest Subcutaneous Tissue and Fascia, Percutaneous Approach (ICD-10-PCS; 2018-07-16)
PROC: 02H633Z Insertion of Infusion Device into Right Atrium, Percutaneous Approach (ICD-10-PCS; 2018-07-16)
PROC: 5A1D70Z Performance of Urinary Filtration, Intermittent, Less than 6 Hours Per Day (ICD-10-PCS; 2018-07-19)
PROC: 5A1D70Z Performance of Urinary Filtration, Intermittent, Less than 6 Hours Per Day (ICD-10-PCS; 2018-07-21)
DX: I25.710 Atherosclerosis of autologous vein coronary artery bypass graft(s) with unstable angina pectoris (principal); N17.0 Acute kidney failure with tubular necrosis; N18.4 Chronic kidney disease, stage 4 (severe); N17.9 Acute kidney failure, unspecified; M19.90 Unspecified osteoarthritis, unspecified site; K21.9 Gastro-esophageal reflux disease without esophagitis; M54.9 Dorsalgia, unspecified; E78.00 Pure hypercholesterolemia, unspecified; I12.9 Hypertensive chronic kidney disease with stage 1 through stage 4 chronic kidney disease, or unspecified chronic kidney disease; F17.210 Nicotine dependence, cigarettes, uncomplicated; K59.00 Constipation, unspecified; D64.9 Anemia, unspecified; M75.102 Unspecified rotator cuff tear or rupture of left shoulder, not specified as traumatic; S46.212A Strain of muscle, fascia and tendon of other parts of biceps, left arm, initial encounter; X58.XXXA Exposure to other specified factors, initial encounter; Y93.89 Activity, other specified; Y92.89 Other specified places as the place of occurrence of the external cause; Y99.8 Other external cause status; I25.2 Old myocardial infarction; Z95.1 Presence of aortocoronary bypass graft; Z79.899 Other long term (current) drug therapy; Z71.6 Tobacco abuse counseling
CPT/HCPCS: 10081; 10194; 32100